=== PATIENT | female | born 1985 | race Caucasian/White ===

== ENCOUNTER 2020-03-28 08:10 | Outpatient (CLI) | payer OTHER, SELFPAY ==
--- NOTE | 2020-03-28 14:01 | WPDPFTINT ---
PFT Interpretation PFT Interpretation: This PFT met all criteria for ATS standards and reproducibility FEV/FVC post bronchodilator 79% FEV1 107% FVC 107% TLC 11% RV 98% RV/TLC 29% DLCO 64% when adjusted for alveolar volume but not adjusted for hemoglobin Flow volume loops were normal Impression: No significant obstruction or restriction are present. Mildly decreased diffusion capacity is present. In the absence of anemia or pulmonary hypertension, intrinsic lung disease may still be present Clinical correlation is advised.
== END 2020-03-28 08:11 | disposition home or self-care (01) ==
PROVIDERS: PCP Nurse Practitioner; Visit Provider Internal Medicine Critical Care Medicine
DX: J45.909 Unspecified asthma, uncomplicated (principal)
CPT/HCPCS: 94060; 94726; 94729

== ENCOUNTER 2020-09-14 14:31 | Emergency (ER) | payer OTHER, SELFPAY ==
[2020-09-14 14:40] VITALS: BP 114/74; PULSE 87; RESP 17; TEMP 36.3; O2SAT 99
--- NOTE | 2020-09-14 15:45 | ED.GENADULT ---
HPI - General Adult General Chief complaint: Upper Respiratory Infection Stated complaint: Hot Flash,Lump in throat Time Seen by Provider: 09/14/20 15:20 Source: patient and RN notes reviewed Mode of arrival: ambulatory Limitations: no limitations History of Present Illness HPI narrative: 35-year-old female presents with complaints of upper respiratory infection, sinus pressure and congestion, ear fullness, feeling a lump in throat, hot flashes, cough, and intermittent headache (not the worst of her life) for the past 7 days. Radha reports increasing symptoms and ill family members. Sudafed with little relief. Cough without chest congestion. No rhinorrhea. Nasal congestion. No high fevers, drooling, neck or throat swelling. Denies pain with swallowing. Exacerbating factor consist of smoke exposure. Denies nausea, vomiting, or abdominal pain. Tolerating liquids well. Denies dyspnea, difficulty swallowing, jaw pain, dental pain, foreign body sensation, and rash. LMP hysterectomy. Remains active. The patient reports she have not been diagnosed with COVID-19. The patient reports she is not waiting for the results of a COVID-19 lab test. The patient reports she do not have chills, weakness, or fatigue. The patient reports she do not have a worsening cough. Denies chest pain. The patient reports she do not have any loss of taste or smell or diarrhea. Denies recent traveling. Denies concerns for COVID-19 or exposures been home with limited outdoor exposure except for essential household needs, work, and return home. At this time, patient is not suspected of having COVID-19. Some parts of this dictation were generated by voice recognition software and may contain typographical and/or grammatical inaccuracies. Related Data Home Medications Medication Instructions Recorded Confirmed buspirone 30 mg tablet 30 mg PO BID 02/16/20 09/14/20 hydroxyzine HCl 50 mg tablet 50 mg PO TID 02/16/20 09/14/20 lamotrigine 150 mg tablet 150 mg PO DAILY 02/16/20 09/14/20 multivitamin 1 tablet PO DAILY 02/16/20 09/14/20 oxybutynin chloride 5 mg tablet 10 mg PO DAILY 02/16/20 09/14/20 pregabalin 150 mg capsule 150 mg PO BID 02/16/20 09/14/20 simvastatin 20 mg/5 mL (4 mg/mL) 20 mg PO DAILY 02/16/20 09/14/20 oral suspension tizanidine 4 mg capsule 4 mg PO TID 02/16/20 09/14/20 Allergies Allergy/AdvReac Type Severity Reaction Status Date / Time latex Allergy Intermediate RASH Verified 09/14/20 14:33 Review of Systems Review of Systems: Narrative: CONSTITUTIONAL: Denies fever, chills. Complains of sweats. EYES: Denies visual changes, redness, discharge. ENT: Denies rhinorrhea, otalgia, sore throat. Complains of lump in throat, congestion. CARDIOVASCULAR: Denies chest pain, palpitations, edema. RESPIRATORY: Denies dyspnea, wheezing. Complains of cough. GASTROINTESTINAL: Denies abdominal pain, nausea, vomiting, diarrhea. SKIN: Denies rash or itching. MUSCULOSKELETAL: Denies acute back pain, joint pain, or myalgia. NEUROLOGIC: Denies numbness or focal weakness. Complains of intermittent LAWSON. PSYCHIATRIC: Denies anxiety or depression. All systems reviewed & are unremarkable except as noted in HPI and below. PMFSH Past Medical History Medical History ADHD (attention deficit hyperactivity disorder) Anxiety Asthma Bipolar disorder Depression Fibromyalgia Finger fracture, right Fifth finger-insertion of donna and pain and removal of donna and pin Hypercholesteremia Overactive bladder Smoker Surgical History Surgical History H/O breast implant H/O: hysterectomy Family History Family History (Updated 09/14/20 @ 16:07 by PETER Cobos) Mother Diabetes mellitus Hypertension Father Unknown family medical history Social History Social History (Updated 09/14/20 @ 16:08 by PETER Cobos) Smoking packs per day: 1 Smoking cigarettes per day: 20.0
[2020-09-16 19:44] LABS: SARS-CoV-2 RNA PCR Negative
== END 2020-09-14 16:04 | disposition home or self-care (01) ==
PROVIDERS: Emergency Provider Nurse Practitioner Family
DX: J01.90 Acute sinusitis, unspecified (principal); J02.9 Acute pharyngitis, unspecified; Z20.822 Contact with and (suspected) exposure to COVID-19; F17.210 Nicotine dependence, cigarettes, uncomplicated; F41.9 Anxiety disorder, unspecified; F31.9 Bipolar disorder, unspecified; M79.7 Fibromyalgia; E78.00 Pure hypercholesterolemia, unspecified
CPT/HCPCS: 87081; 87880; 99213; C9803; G0463; U0003; U0005

== ENCOUNTER 2024-12-15 14:21 | Outpatient (RCR) | payer OTHER, SELFPAY ==
--- NOTE | 2024-11-24 13:17 | PCPTNOTE ---
pt called to cancel her IE today ,stating her friend was in labor and she needed to be there to support her. Pt is currenlty rescheduled for 12/15
--- NOTE | 2024-12-15 15:28 | OPREHPOC ---
Outpatient Therapy Plan of Care This is a Multidisciplinary Plan of Care that may contain components documented by all disciplines (PT, OT, and ST.) PT Problem 1 PT Problem #1 Knowledge Deficit PT Goal 1 Goal / Goal Update 1*independent with HEP 2* pt demonstrate correct lifting technique from the floor Target Visit 10 PT Problem 2 PT Problem #2 Pain PT Goal 1 Goal / Goal Update 1* decrease pain rating to 3/10 at worst 2* pt report standing/walking tolerance of 30 minutes Target Visit 10 PT Problem 3 PT Problem #3 Impaired Range of Motion PT Goal 1 Goal / Goal Update increase hamstring length to decrease pull on her sacrum: supine SLR to 60' 1* R 2* L Target Visit 10 PT Problem 4 PT Problem #4 Impaired Strength PT Goal 1 Goal / Goal Update * increase strength of R and L LE and trunk to 4+/ 5 to improve stability to spine and hips Target Visit 10
--- NOTE | 2024-12-15 15:28 | PTOPEVAL1 ---
Assessment and note entered by Elly Conroy PT Evaluation Information Assessment Status Evaluation ICD-10 Condition Codes (PT) Pain in low back M54.50 Other ICD-10 Condition Codes ( sacroilitis M46.1 PT) Onset chronic pain Subjective Information chronic pain with low back and fibromyalgia; previously pain was so bad, could not come in for therapy, now feel little better and feels she can participate in therapy. under the care of pain management about ? 3-5 years: injections into hips and spine, med changes; have had PT in the past for neck pain/spasms- long time ago; still have some burning, tingle and pain in neck and upper back activity: is not working outside of the home; home chores- trying to paint desir and cannot do it, sweeping floors for one room at time only; does not do any fitness exercises or activity; Reported Pain Level Pain Score 3: Self Report Additional Pain Score Comments pain range in the past week 2-5/10; feels like something out of place and being pinched; middle of back has tingling, numb pain; radicular into R and L posterior legs to ankles; knees and ankles give out--have not had any falls in past few years; increase pain: sit 10-15 minutes; walking/standing 10-15 minutes decrease pain: change positions; tylenol, ibuprofen taking prescription pain meds that are helping; with sleeping- sleeping through the night Assessment PT Clinical Summary Radha has the diagnosis of back pain, sacroiliitis. Reports at times, pain into both R and L back of legs to ankles and feels like knees and ankles going to give out. Back Index self rating of 52% limitation in activity level; sitting, walking and activity tolerances are limited due to pain. She does not work outside of the home and does not do any fitness exercises. With the changes made in her meds by pain management, she is feeling better and feels like she can start some therapy. Her medical history includes: chronic back pain and fibromyalgia. With the evaluation: standing posture with trunk rotation, increase lumbar lordosis and L shoulder elevation; pain is increased with supine L hip IR and SLR/hamstring stretch; weakness over trunk and hips; decrease flexibility over both hamstrings. Skilled PT services are indicated for treatment of modalities to decrease pain, therapeutic exercises to increase strength and flexibility and education for HEP and posture/body mechanics. Plan of Care Interventions Electrical Stimulation,Hot Pack/Cold Pack,Manual Therapy,Mechanical Traction,Neuro Re-education, Patient/Caregiver Education,Therapeutic Activities ,Therapeutic Exercise,Ultrasound,Other Other Interventions taping PT Services Indicated Yes Treatment Frequency and 2x/wk for 10 visits Duration These treatments will address the objective and functional deficits as defined above. The patient will be advanced safely and appropriately in order for the patient to progress towards his/her prior level of function. Additional exercises will be introduced and as well as a comprehensive home exercise program upon discharge, if needed, ?to ensure carryover of functional gains achieved in the clinic. This treatment plan has been reviewed and agreement upon by the patient.
--- NOTE | 2024-12-22 11:33 | PCPTNOTE ---
No call no show, reason unknown . AKHeidi
--- NOTE | 2024-12-27 14:16 | PCPTNOTE ---
Pt no call, no show this date. Attempted to contact pt, call was answered with inaudible noises then call disconnected.
--- NOTE | 2024-12-29 07:29 | PCPTNOTE ---
pt cancelled todays appt, no reason given
--- NOTE | 2025-01-04 16:26 | PTOPDC ---
Assessment and note entered by Precious Walsh, PT Evaluation Information Assessment Status Discharge - Pt Not Present ICD-10 Condition Codes (PT) Pain in low back M54.50 Other ICD-10 Condition Codes ( sacroilitis M46.1 PT) Onset chronic pain Subjective Information chronic pain with low back and fibromyalgia; previously pain was so bad, could not come in for therapy, now feel little better and feels she can participate in therapy. under the care of pain management about ? 3-5 years: injections into hips and spine, med changes; have had PT in the past for neck pain/spasms- long time ago; still have some burning, tingle and pain in neck and upper back activity: is not working outside of the home; home chores- trying to paint desir and cannot do it, sweeping floors for one room at time only; does not do any fitness exercises or activity; Assessment PT Clinical Summary Pt came in for evaluation and arranged appointment schedule, however she failed to attend the said schedule without advance notice. She has 3 No Shows and 1 cancellation since the evaluation. Pt is DC'd due to noncompliance, non attendance. Plan of Care PT Services Indicated No
== END 2025-01-05 12:54 | disposition home or self-care (01) ==
LOC: ANHPT 14:21
PROVIDERS: Visit Provider Nurse Practitioner Adult Health
DX: M54.50 Low back pain, unspecified (principal); M46.1 Sacroiliitis, not elsewhere classified
CPT/HCPCS: 97110; 97161; 97530